=== PATIENT | male | born 1980 | race Two or more races ===

== ENCOUNTER 2024-08-27 07:04 | Emergency (ER) | payer MEDICAID, SELFPAY ==
[2024-08-27 07:05] VITALS: BMI 34.8
[2024-08-27 07:12] VITALS: BP 130/82; PULSE 70; RESP 16; TEMP 36.9; O2SAT 100
--- NOTE | 2024-08-27 07:22 | PD.EDRME ---
Rapid Medical Screening Exam RME Arrival date/time: 08/27/24 07:04 Chief Complaint: Nausea/Vomiting/Diarrhea Time Seen by Provider: 08/27/24 07:14 Vital signs: Vital Signs Temperature 98.5 F 08/27/24 07:12 Pulse Rate 70 08/27/24 07:12 Respiratory Rate 16 08/27/24 07:12 Blood Pressure 130/82 08/27/24 07:12 Pulse Oximetry (%) 100 08/27/24 07:12 Oxygen Delivery Method Room Air 08/27/24 07:12 Vital signs reviewed by provider: Yes RME Narrative: 43-year-old male presents for evaluation of abdominal cramping and diarrhea x 3 days. He describes it as diffuse lower abdominal cramping without radiation. He reports a lot of episodes of diarrhea daily and has had poor PO intake since onset of symptoms. He denies chest pain, nausea, vomiting, fever, chills. He denies known sick contacts. He notes that his symptoms started while he was working outside on Wednesday.
--- NOTE | 2024-08-27 07:25 | XR_ITS ---
Examination: CT abdomen and pelvis without contrast. Coronal 3-D reconstructions. Sagittal 2-D reconstructions. Date and time of exam:August 27, 2024 0802 hrs. Indications: Diarrhea abdominal pain abdominal cramping beginning 3 days ago CTDI: vol (mGy): 7.76 DLP: (mGycm): 434 Technique: Axial images of the abdomen have been obtained, 3 mm slice thickness Intravenous contrast material has not been administered. Low dose protocols were performed. One or more of the following dose reduction techniques were used; automated exposure control, adjustment of the mA and/or KV according to patient size, use of iterative reconstruction technique. Findings: No focal liver or splenic lesions No gallstones No pancreatic or adrenal mass Moderate bilateral renal parenchymal scar formation No renal or ureteral calculi, no hydronephrosis Aorta normal size Normal appendix No colitis pattern however this is a noncontrast study No diverticulitis Urinary bladder contracted No prostatomegaly The osseous structures are intact Impression: Moderate bilateral renal parenchymal scar formation No renal or ureteral calculi, no hydronephrosis Normal appendix No bowel obstruction No definite colitis or enteritis pattern, however this is a noncontrast study which limits assessment
[2024-08-27 07:53] LABS: Basophils % (Auto) 0 % (0-2.5); Eosinophils % (Auto) 0 % (0-10); Hematocrit 41.5 % (41.0-53.0); Immature Granulocytes % (Auto) 0 % (0-0); Immature Granulocytes Auto 0.02 Thou/mm3 (0.00-0.00); Lymphocytes # (Auto) 1.5 Thou/mm3 (1.0-4.8); Lymphocytes % (Auto) 18 % (10-50); Mean Corpuscular HGB Conc 33.7 g/dl (31.0-37.0); Mean Corpuscular Hemoglobin 30.5 pg (25.0-35.0); Mean Corpuscular Volume 90 fL (80-100); Monocytes # (Auto) 0.8 Thou/mm3 (0.0-0.8); Monocytes % (Auto) 10 % (0-12); Neutrophils # (Auto) 5.7 Thou/mm3 (1.8-7.7); Neutrophils % (Auto) 71 % (37-80); Nucleated Red Blood Cell % 0 /100 WBC (0); Platelet Count 235 Thou/mm3 (140-440); RDW Standard Deviation 42.8 fL (35.1-43.9); Red Blood Count 4.59 Miln/mm3 (4.50-5.90); White Blood Count 8.1 Thou/mm3 (3.8-10.6)
[2024-08-27 08:13] LABS: Alanine Aminotransferase 24 U/L (10-49); Albumin, Serum 4.8 gm/dL (3.5-5.0); Albumin/Globulin Ratio 1.5 (1.2-2.2); Alkaline Phosphatase 102 U/L (46-116); Anion Gap 7 (7-16); Aspartate Amino Transferase 21 U/L (0-34); BUN/Creatinine Ratio 15 Ratio (12-20); Bilirubin,Total 0.3 mg/dL (0.3-1.2); Blood Urea Nitrogen 26 mg/dL (9-23); Calcium 9.2 mg/dL (8.3-10.6); Calcium (Corrected) 9.2 mg/dL (8.5-10.1); Carbon Dioxide 21.7 mMol/L (20.0-31.0); Chloride 107 mMol/L (98-107); Creatinine (Component) 1.7 mg/dL (0.6-1.3); Estimated Creatinine Clearance 62.7 mL/min (>60); Globulin 3.1 gm/dL (2.3-3.5); Glucose 120 mg/dL (74-106); Lipase 29 U/L (12-53); Osmolality,Calculated 277 (275-295); Potassium 4.6 mMol/L (3.4-5.1); Sodium 136 mMol/L (136-145); Total Protein 7.9 gm/dL (5.7-8.2); eGFR 51 See Note
[2024-08-27] MEDS: BISMUTH SUBSALICYL 1 ML 15 ML PO (08:47)
[2024-08-27 08:50] LABS: Collection Type, Urine Clean Catch; Squamous Epithelial Cell,Urine 0 /hpf (0-5)
[2024-08-27 09:21] LABS: Bilirubin,Urine Negative (Negative); Blood,Urine 2+ (Negative); Clarity,Urine Clear (Clear/Hazy); Color,Urine Yellow (Lt Yel-Yel); Glucose, Urine Negative (Negative); Ketones,Urine Negative (Negative); Leukocyte Esterase,Urine Negative (Negative); Nitrite,Urine Negative (Negative); Protein,Urine 1+ (Neg - Trace); RBC,Urine 7 /hpf (0-3); Specific Gravity,Urine 1.026 (1.001-1.035); Urobilinogen,Urine Negative mg/dL (0.0-1.0); WBC,Urine 1 /hpf (0-5)
--- NOTE | 2024-08-27 10:39 | PD.EDNV ---
Nausea/Vomit./Diarrhea-RME/HPI General Chief complaint: Nausea/Vomiting/Diarrhea Stated complaint: ABD PAIN,DIARRHEA X 2 DAYS Time Seen by Provider: 08/27/24 07:14 Arrival date/time: 08/27/24 07:04 Limitations: no limitations RME / HPI RME / HPI Narrative: 43-year-old male presents for evaluation of abdominal cramping and diarrhea x 3 days. He describes it as diffuse lower abdominal cramping without radiation. He reports a lot of episodes of diarrhea daily and has had poor PO intake since onset of symptoms. He denies chest pain, nausea, vomiting, fever, chills. He denies known sick contacts. He notes that his symptoms started while he was working outside on Wednesday. MD complaint: diarrhea Description of Vomiting: food contents and watery Associated Abdominal Pain: Yes Location of pain: diffuse Quality: cramping Consistency: intermittent Relieving factors: none Exacerbating factors: none Associated symptoms: denies other symptoms Related Data Previous Rx's ?Medication ?Instructions ?Recorded meclizine 50 mg tablet 50 mg PO BID PRN dizziness #20 tabs 11/19/23 loperamide 2 mg capsule 2 mg PO Q6H PRN loose stool #7 caps 08/27/24 ondansetron 4 mg disintegrating 4 mg PO Q8H PRN nausea and 08/27/24 tablet vomiting #14 tabs Allergies Allergy/AdvReac Type Severity Reaction Status Date / Time No Known Allergies Allergy Verified 08/27/24 07:07 Review of Systems Constitutional Constitutional: Denies fever(s), Reports poor appetite and Denies night sweats ENT Ears, Nose, Mouth, and Throat: Denies neck pain Cardiovascular Cardiovascular: Denies chest pain, Denies dyspnea and Denies leg edema Respiratory Respiratory: Denies cough and Denies dyspnea Gastrointestinal Gastrointestinal: Reports abdominal pain, Denies belching, Reports cramping, Reports diarrhea, Denies hematochezia, Denies melena, Denies nausea and Denies vomiting Genitourinary Genitourinary: Denies dysuria and Denies hematuria Musculoskeletal Musculoskeletal: Denies back pain and Denies neck pain Integumentary/Breasts Skin/Breast: Denies rash Past Medical History Past Medical History CARDIAC: Positive Hypertension; Negative Congestive Heart Failure RESPIRATORY: Negative Chronic Obstructive Pulmonary Disease (COPD) GENITOURINARY: Negative Renal Disease ENDOCRINE: Negative Diabetes Mellitus Type 1 or Diabetes Mellitus Type 2 Social History SMOKING STATUS: Never smoker ED Exam General Limitations: Present no limitations General appearance: Present alert and in no apparent distress Head Head exam: Present atraumatic and normocephalic Eye Eye exam: Present normal appearance and EOMI; Absent scleral icterus ENT ENT exam: Present mucous membranes moist Neck Neck exam: Present normal inspection and full ROM Chest Chest inspection: Present normal inspection and symmetric chest wall rise Respiratory Respiratory exam: Present normal lung sounds bilaterally; Absent respiratory distress Cardiovascular Cardiovascular exam: Present regular rate and +S1 Abdominal Exam Abdominal exam: Present soft and normal bowel sounds; Absent distention, tenderness, guarding, rebound or rigidity Rectal Exam Rectal exam: Present deferred Extremities Exam Extremities exam: Present normal inspection and full ROM Back Exam Back exam: Present normal inspection and full ROM Neurological Exam Neurological exam: Present alert and normal gait Psychiatric Psychiatric exam: Present normal affect Skin Skin exam: Present warm, dry and normal color Course Quality Measures none Orders Category Date Time Status Bedside COVID-19 Antigen Test NOW Care 08/27/24 07:26 Completed Bedside Influenza A&B Antigen Test NOW Care 08/27/24 07:[address] abdomen pelvis wo con Stat Exams 08/27/24 07:25 Completed CBC Stat Lab 08/27/24 07:44 Completed CMP [Comprehensive Metabolic Panel] Stat Lab 08/27/24 07:44 Completed Lipase Stat Lab 08/27/24 07:44 Completed UA [Urinalysis] Stat Lab 08/27/24 08:10 Completed Acetaminophen Tab [Tylenol Tab] Med 08/27/24 10:20 Discontinued 650 mg PO X1 ONE Bismuth Subsalicyl Med 08/27/24 07:26 Discontinued 15 ml PO X1 ONE Loperamide [Imodium] Med 08/27/24 10:20 Discontinued 4 mg PO X1 ONE Ondansetron Odt [Zofran Odt] Med 08/27/24 10:20 Discontinued 4 mg PO X1 ONE Reevaluation(s) Reevaluation #1: Patient reevaluated approximately 20 minutes ago. He reported some improvement in his symptoms following Pepto-Bismol. We discussed extensively the results of today's workup, to include his MICHAEL. I stressed he needs to hydrate well and follow-up with his primary care doctor in 1 to 2 days. He requested a flu vaccine today which I stated we do not administer in the the emergency department routinely and urged him to follow-up with primary care for flu vaccine as well. Patient stable at time of discharge. Time: 10:39 Vital Signs Vital signs: Vital Signs Temperature 98.5 F 08/27/24 07:12 Pulse Rate 70 08/27/24 07:12 Respiratory Rate 16 08/27/24 07:12 Blood Pressure 130/82 08/27/24 07:12 Pulse Oximetry (%) 100 08/27/24 07:12 Oxygen Delivery Method Room Air 08/27/24 07:12 Nausea/Vomiting/Diarrhea MDM Narrative MDM Narrative:: 43-year-old male previously healthy presents with abdominal cramping and diarrhea. Vital signs reassuring. Possibly gastroenteritis given acute onset while working around others outside. Possibly colitis but no clear colitis pattern seen on CT today. No recent antibiotic use so less concern for C. difficile at this time. Viral swabs today were negative. Mild MICHAEL on metabolic panel today with evidence of dehydration. Patient's symptoms were somewhat improved in the department following medication. Ultimately patient was appropriate for discharge home with follow-up with primary care within the next 24 to 48 hours. Strict return precautions were provided. Patient stable at time of discharge. Patient data External records reviewed:: [facility] previous records Clinical information provided by:: patient Social determinants that could affect healthcare access:: none Patient has the following chronic illnesses:: None reported. How is presenting disease/condition affected by chronic disease/condition?: no chronic disease Evaluation data The following diagnostics were reviewed and interpreted by me:: lab results and radiology exam(s) Lab and/or radiology exams considered but not ordered:: Considered not ordered. Interpretation Summary: Considered not ordered. Medications / Prescriptions Medications / Prescriptions considered but not ordered:: Rx given. Medication administrations:: Medication Administration History Discontinued Medications Acetaminophen (Acetaminophen 325 Mg Tablet) 650 mg PO X1 ONE Stop: 08/27/24 10:21 Last Admin: 08/27/24 10:44 Dose: 650 mg Documented By: ED Bismuth Subsalicylate (Bismuth Subsalicyl 1 Ml) 15 ml PO X1 ONE Stop: 08/27/24 07:27 Last Admin: 08/27/24 08:47 Dose: 15 ml Documented By: DO Loperamide HCl (Loperamide 2 Mg Capsule) 4 mg PO X1 ONE Stop: 11/24/24 10:21 Last Admin: 08/27/24 10:45 Dose: 4 mg Documented By: ED Ondansetron HCl (Ondansetron Odt 4 Mg Tabrap) 4 mg PO X1 ONE; Protocol Stop: 08/27/24 10:21 Last Admin: 08/27/24 10:45 Dose: 4 mg Documented By: ED Rx given. Consultations Consultation(s) initiated? (list below): No Diagnosis Nausea Differential Diagnosis: traveler's diarrhea, food poisoning, gastroenteritis, clostridium difficile infection, dehydration and other (Colitis, viral illness, influenza.) Most likely diagnosis given after review of the tests above:: Gastroenteritis, MICHAEL. Admission Indicated Admission indicated?: not indicated Admission Request Was there a request for admission?: No Disposition Plan Disposition Plan: Discharge Discharge Attestation Discharge Attestation: The patient and all family members were given an opportunity to ask questions and understood the discharge instructions. Discharge instructions specifically effects, indications for sooner follow up or return to the emergency department, and the expected course of current diagnosis. Patient condition: Stable Discharge Plan Plan Patient Disposition: HOME (Self Care) Disposition Comment: stable Prescriptions/Referrals Prescriptions/Med Rec: New loperamide 2 mg capsule 2 mg PO Q6H PRN (Reason: loose stool) Qty: 7 0RF ondansetron 4 mg tablet,disintegrating 4 mg PO Q8H PRN (Reason: nausea and vomiting) Qty: 14 0RF No Action meclizine 50 mg tablet 50 mg PO BID PRN (Reason: dizziness) Qty: 20 0RF Referrals: Edson Villegas MD [Primary Care Provider] - In 1 week Problem List Clinical Impression: Dehydration, Gastroenteritis, MICHAEL (acute kidney injury), Hematuria Patient/Caregiver Discharge Instructions Other Activity Instructions:: Follow-up with primary care in the next 24 to 48 hours for reevaluation. Reassess for MICHAEL. Take 1 tablet of loperamide every 6 hours as needed for diarrhea for the next 2 days. Take Zofran as needed for nausea. Return to the ED if your symptoms worsen or change. Education Materials: Kidney Problems, ED Dehydration (Adult), ED Gastroenteritis, Noninfectious Print Language: Tamazight Stand Alone Forms: [employer] Award Info., Patient Portal Info Letter CAROL/AMINAH Supervising Physician CAROL/AMINAH Supervising Physician: Dr. Bell
[2024-08-27] MEDS: ACETAMINOPHEN 325 MG TABLET 650 MG PO (10:44)
[2024-08-27] MEDS: ONDANSETRON ODT 4 MG TABRAP PO (10:45)
[2024-08-27] MEDS: LOPERAMIDE 2 MG CAPSULE 4 MG PO (10:45)
[2024-08-27 10:55] VITALS: BP 122/74; PULSE 62; RESP 18; TEMP 36.8; O2SAT 100
== END 2024-08-27 10:55 | disposition home or self-care (01) ==
PROVIDERS: Physician Assistant; Emergency Provider Emergency Medicine; PCP Family Medicine
DX: N17.9 Acute kidney failure, unspecified (principal); E86.0 Dehydration; K52.9 Noninfective gastroenteritis and colitis, unspecified
CPT/HCPCS: 36415; 74176; 80053; 81001; 83690; 85025; 87400; 87811; 99284; Q0162; A9270